=== PATIENT | female | born 1965 | race Caucasian/White ===

== ENCOUNTER 2021-05-15 12:20 | Inpatient (IN) ==
[2021-05-15] MEDS ORDERED: *HR* Dextrose 50 % in Water (Vial) 50 ML VIAL IVP PRN (16:30)
[2021-05-15] MEDS ORDERED: D5% in Water 1,000 ML IVC PRN (16:30)
[2021-05-15] MEDS ORDERED: Ringers Solution, Lactated 1,000 ML IVC SCH (16:30)
[2021-05-15] MEDS ORDERED: Dextrose Gel 15 GM/37.5 ML TUBE PO PRN ×2 (16:30)
[2021-05-15] MEDS ORDERED: Naloxone 0.4 MG/ML INJ IVP PRN (16:30)
[2021-05-15] MEDS ORDERED: *HR* LORazepam 2 MG/ML VIAL IVP PRN (16:37)
[2021-05-15] MEDS: Insulin LISPRO 300 UNITS/3 ML VIAL SUBQ SCH ×2 (17:00→23:57)
[2021-05-15 17:32] LABS: Basophils % 0.2 %; Eosinophils # 0.1 K/mcL (0.0-0.6); Eosinophils % 0.9 %; Hematocrit 42.4 % (35.3-44.9); Hemoglobin 12.6 g/dL (11.5-15.4); Immature Granulocytes % 0.3 % (0-4); Lymphocytes # 1.8 K/mcL (0.6-4.6); Lymphocytes % 15.2 %; Mean Corpuscular HGB Conc 29.7 g/dL (31.6-35.5); Mean Corpuscular Volume 104.2 fL (83.0-100.0); Mean Platelet Volume 11.2 fL (9.4-12.4); Monocytes # 1.6 K/mcL (0.0-1.3); Monocytes % 13.5 %; Neutrophils # 8.3 K/mcL (1.6-8.9); Nucleated Red Blood Cells 0.4 /100 WBC (0); Platelet Count 376 K/mcL (140-400); Red Blood Count 4.07 M/mcL (3.82-4.97); Red Cell Distribution Width 14.5 % (11.5-14.5); Segmented Neutrophils % 69.9 %; White Blood Count 11.8 K/mcL (4.3-11.1)
[2021-05-15 18:14] LABS: Calcium 8.2 mg/dL (8.6-10.3); Potassium 5.4 mEq/L (3.5-5.1)
[2021-05-15] MEDS: Piperacillin/Tazobactam 3.375 GM in 0.9 % Sodium Chloride Mini Bag 100 ML IVPB SCH (18:43)
[2021-05-15] MEDS: *HR* Heparin 5,000 UNIT/ML VIAL SQ SCH (18:44)
[2021-05-15] MEDS: Pantoprazole 40 MG VIAL IVP SCH (18:44)
[2021-05-15] MEDS: 0.9 % Sodium Chloride 1,000 ML IVC SCH (19:02)
[2021-05-15 20:05] LABS: ABG Base Excess -3 mEq/L (-2 to 3); ABG HCO3 27 mEq/L (21-27); ABG Oxygen Saturation 93 % (95-98); ABG PCO2 74 mmHg (35-45); ABG PH 7.17 pH Units (7.32-7.45); ABG PO2 88 mmHg (85-104); ABG TCO2 30 mEq/L (20-26)
[2021-05-15 21:59] LABS: ABG Base Excess 0 mEq/L (-2 to 3); ABG HCO3 29 mEq/L (21-27); ABG Oxygen Saturation 92 % (95-98); ABG PCO2 69 mmHg (35-45); ABG PH 7.23 pH Units (7.32-7.45); ABG PO2 77 mmHg (85-104); ABG TCO2 31 mEq/L (20-26)
[2021-05-16] MEDS: Piperacillin/Tazobactam 3.375 GM in 0.9 % Sodium Chloride Mini Bag 100 ML IVPB SCH ×3 (01:48→17:22)
[2021-05-16 01:51] LABS: Basophils % 0.3 %; Eosinophils # 0.1 K/mcL (0.0-0.6); Eosinophils % 1.1 %; Hematocrit 39.7 % (35.3-44.9); Hemoglobin 12.1 g/dL (11.5-15.4); Immature Granulocytes % 0.4 % (0-4); Lymphocytes # 1.5 K/mcL (0.6-4.6); Lymphocytes % 13.4 %; Mean Corpuscular HGB Conc 30.5 g/dL (31.6-35.5); Mean Corpuscular Hemoglobin 31.3 pg (28.0-33.3); Mean Corpuscular Volume 102.6 fL (83.0-100.0); Mean Platelet Volume 11.7 fL (9.4-12.4); Monocytes # 1.7 K/mcL (0.0-1.3); Monocytes % 15.3 %; Neutrophils # 7.9 K/mcL (1.6-8.9); Nucleated Red Blood Cells 0.4 /100 WBC (0); Platelet Count 353 K/mcL (140-400); Red Blood Count 3.87 M/mcL (3.82-4.97); Red Cell Distribution Width 14.6 % (11.5-14.5); Segmented Neutrophils % 69.5 %; White Blood Count 11.3 K/mcL (4.3-11.1)
[2021-05-16 02:10] LABS: Calcium 8.5 mg/dL (8.6-10.3); Magnesium 2.7 mg/dL (1.6-2.6); Phosphorous 4.5 mg/dL (2.7-4.5); Potassium 4.6 mEq/L (3.5-5.1)
[2021-05-16 02:48] LABS: Platelet Estimate Normal (Normal)
[2021-05-16] MEDS: *HR* Heparin 5,000 UNIT/ML VIAL SQ SCH ×2 (05:12→17:23)
[2021-05-16] MEDS: Pantoprazole 40 MG VIAL IVP SCH ×2 (05:12→17:23)
[2021-05-16] MEDS: Insulin LISPRO 300 UNITS/3 ML VIAL SUBQ SCH ×3 (07:19→17:06)
[2021-05-16] MEDS: Nicotine 21 MG PATCH.TD24 TD SCH (07:26)
[2021-05-16] MEDS ORDERED: Ondansetron 4 MG/2 ML VIAL IVP PRN (09:49)
[2021-05-16] MEDS: 0.9 % Sodium Chloride 1,000 ML IVC SCH (09:52)
[2021-05-17] MEDS: Insulin LISPRO 300 UNITS/3 ML VIAL SUBQ SCH ×4 (00:10→17:51)
[2021-05-17] MEDS: Piperacillin/Tazobactam 3.375 GM in 0.9 % Sodium Chloride Mini Bag 100 ML IVPB SCH ×3 (02:56→17:50)
[2021-05-17] MEDS: *HR* Heparin 5,000 UNIT/ML VIAL SQ SCH ×2 (05:14→17:51)
[2021-05-17] MEDS: Pantoprazole 40 MG VIAL IVP SCH ×2 (05:14→17:50)
[2021-05-17] MEDS: 0.9 % Sodium Chloride 1,000 ML IVC SCH (05:15)
[2021-05-17 07:43] LABS: Basophils # 0.1 K/mcL (0.0-0.2); Basophils % 0.4 %; Eosinophils % 0.1 %; Hematocrit 39.1 % (35.3-44.9); Hemoglobin 11.8 g/dL (11.5-15.4); Immature Granulocytes % 1.1 % (0-4); Lymphocytes # 1.8 K/mcL (0.6-4.6); Lymphocytes % 14.1 %; Mean Corpuscular HGB Conc 30.2 g/dL (31.6-35.5); Mean Corpuscular Hemoglobin 31.2 pg (28.0-33.3); Mean Corpuscular Volume 103.4 fL (83.0-100.0); Mean Platelet Volume 11.4 fL (9.4-12.4); Monocytes # 1.1 K/mcL (0.0-1.3); Monocytes % 8.2 %; Neutrophils # 9.8 K/mcL (1.6-8.9); Nucleated Red Blood Cells 0.7 /100 WBC (0); Platelet Count 375 K/mcL (140-400); Red Blood Count 3.78 M/mcL (3.82-4.97); Red Cell Distribution Width 14.9 % (11.5-14.5); Segmented Neutrophils % 76.1 %; White Blood Count 12.9 K/mcL (4.3-11.1)
[2021-05-17 08:18] LABS: BUN/Creatinine Ratio 37 (6-26); Blood Urea Nitrogen 30 mg/dL (6-20); Calcium 9.2 mg/dL (8.6-10.3); Carbon Dioxide 29 mEq/L (23-29); Chloride 113 mEq/L (98-107); Glucose 118 mg/dL (70-105); Magnesium 2.4 mg/dL (1.6-2.6); Osmolality,Calculated 317 (280-300); Phosphorous 1.8 mg/dL (2.7-4.5); Potassium 3.4 mEq/L (3.5-5.1); Sodium 150 mEq/L (136-145); eGFR For African Americans > 60 (> 60); eGFR For Non-African Americans > 60 (> 60)
[2021-05-17] MEDS: Nicotine 21 MG PATCH.TD24 TD SCH (08:50)
[2021-05-17 10:19] LABS: ABG Base Excess 4 mEq/L (-2 to 3); ABG HCO3 32 mEq/L (21-27); ABG Oxygen Saturation 87 % (95-98); ABG PCO2 64 mmHg (35-45); ABG PO2 60 mmHg (85-104); ABG TCO2 34 mEq/L (20-26)
[2021-05-17] MEDS ORDERED: Isovue-370 500 ML BOTTLE IVP ONE (11:15)
[2021-05-17] MEDS ORDERED: Potassium Chloride 40 MEQ, Lidocaine 1% 2 ML in 0.9 % Sodium Chloride 500 ML IVPB ONE (12:49)
[2021-05-18] MEDS: Piperacillin/Tazobactam 3.375 GM in 0.9 % Sodium Chloride Mini Bag 100 ML IVPB SCH (02:13)
[2021-05-18] MEDS: Insulin LISPRO 300 UNITS/3 ML VIAL SUBQ SCH ×5 (02:21→23:42)
[2021-05-18 04:02] LABS: Basophils # 0.1 K/mcL (0.0-0.2); Basophils % 0.5 %; Eosinophils % 0.1 %; Hematocrit 39.6 % (35.3-44.9); Immature Granulocytes % 2.3 % (0-4); Lymphocytes # 2.9 K/mcL (0.6-4.6); Lymphocytes % 17.3 %; Mean Corpuscular HGB Conc 30.3 g/dL (31.6-35.5); Mean Corpuscular Hemoglobin 30.8 pg (28.0-33.3); Mean Corpuscular Volume 101.5 fL (83.0-100.0); Mean Platelet Volume 11.6 fL (9.4-12.4); Monocytes # 1.5 K/mcL (0.0-1.3); Neutrophils # 11.6 K/mcL (1.6-8.9); Nucleated Red Blood Cells 1.5 /100 WBC (0); Platelet Count 395 K/mcL (140-400); Segmented Neutrophils % 70.8 %; White Blood Count 16.5 K/mcL (4.3-11.1)
[2021-05-18 04:06] LABS: VBG HCO3 30 mEq/L (21-27); VBG PCO2 47 mmHg (41-51); VBG PO2 77 mmHg (25-50)
[2021-05-18 04:27] LABS: BUN/Creatinine Ratio 37 (6-26); Blood Urea Nitrogen 31 mg/dL (6-20); Calcium 9.7 mg/dL (8.6-10.3); Carbon Dioxide 28 mEq/L (23-29); Chloride 113 mEq/L (98-107); Glucose 110 mg/dL (70-105); Osmolality,Calculated 319 (280-300); Potassium 3.7 mEq/L (3.5-5.1); Sodium 151 mEq/L (136-145); eGFR For African Americans > 60 (> 60); eGFR For Non-African Americans > 60 (> 60)
[2021-05-18] MEDS: Pantoprazole 40 MG VIAL IVP SCH ×2 (05:24→16:47)
[2021-05-18] MEDS: *HR* Heparin 5,000 UNIT/ML VIAL SQ SCH ×2 (05:24→16:47)
[2021-05-18] MEDS: Nicotine 21 MG PATCH.TD24 TD SCH (09:18)
[2021-05-18] MEDS: Cefepime HCl 2,000 MG in Water for inj. (sterile) 20 ML IVP SCH ×3 (09:18→23:41)
[2021-05-18] MEDS: Azithromycin 250 MG TABLET PO SCH (09:19)
[2021-05-18] MEDS ORDERED: Vancomycin 2,000 MG/520 ML IV.SOLN IVPB ONE (10:00)
[2021-05-18] MEDS ORDERED: Vancomycin 1,500 MG/265 ML IV.SOLN IVPB SCH (22:00)
[2021-05-19 04:57] LABS: ABG Base Excess 2 mEq/L (-2 to 3); ABG HCO3 27 mEq/L (21-27); ABG Oxygen Saturation 92 % (95-98); ABG PCO2 45 mmHg (35-45); ABG PH 7.39 pH Units (7.32-7.45); ABG PO2 64 mmHg (85-104); ABG TCO2 29 mEq/L (20-26); Blood Gas Modality AVAPS; Blood Gas VT 500 cc
[2021-05-19] MEDS: *HR* Heparin 5,000 UNIT/ML VIAL SQ SCH ×2 (05:38→17:45)
[2021-05-19] MEDS: Pantoprazole 40 MG VIAL IVP SCH ×2 (05:38→17:45)
[2021-05-19] MEDS: Insulin LISPRO 300 UNITS/3 ML VIAL SUBQ SCH ×4 (05:42→20:10)
[2021-05-19 06:39] LABS: Hematocrit 39.7 % (35.3-44.9); Hemoglobin 12.5 g/dL (11.5-15.4); Mean Corpuscular HGB Conc 31.5 g/dL (31.6-35.5); Mean Corpuscular Hemoglobin 31.6 pg (28.0-33.3); Mean Corpuscular Volume 100.3 fL (83.0-100.0); Mean Platelet Volume 11.5 fL (9.4-12.4); Platelet Count 365 K/mcL (140-400); Red Blood Count 3.96 M/mcL (3.82-4.97); Red Cell Distribution Width 14.9 % (11.5-14.5); White Blood Count 21.7 K/mcL (4.3-11.1)
[2021-05-19 07:00] LABS: BUN/Creatinine Ratio 41 (6-26); Blood Urea Nitrogen 34 mg/dL (6-20); Calcium 9.4 mg/dL (8.6-10.3); Carbon Dioxide 27 mEq/L (23-29); Chloride 112 mEq/L (98-107); Glucose 98 mg/dL (70-105); Osmolality,Calculated 316 (280-300); Potassium 3.2 mEq/L (3.5-5.1); Sodium 149 mEq/L (136-145); eGFR For African Americans > 60 (> 60); eGFR For Non-African Americans > 60 (> 60)
[2021-05-19] MEDS: Azithromycin 250 MG TABLET PO SCH (08:40)
[2021-05-19] MEDS: Cefepime HCl 2,000 MG in Water for inj. (sterile) 20 ML IVP SCH ×2 (08:40→16:21)
[2021-05-19] MEDS: Nicotine 21 MG PATCH.TD24 TD SCH (08:40)
[2021-05-19] MEDS ORDERED: Potassium Chloride Elixir 20 MEQ/15 ML UDC GTUBE ONE (08:57)
[2021-05-19] MEDS: Potassium Chloride Elixir 20 MEQ/15 ML UDC GTUBE SCH ×2 (09:46→14:21)
[2021-05-19] MEDS: Vancomycin Oral Soln 125 MG/2.5 ML UDC PO SCH (21:59)
[2021-05-20] MEDS: Cefepime HCl 2,000 MG in Water for inj. (sterile) 20 ML IVP SCH ×3 (01:03→15:36)
[2021-05-20 01:35] LABS: Red Blood Count 3.89 M/mcL (3.82-4.97); Red Cell Distribution Width 14.5 % (11.5-14.5)
[2021-05-20 01:36] LABS: Hematocrit 38.6 % (35.3-44.9); Hemoglobin 12.3 g/dL (11.5-15.4); Mean Corpuscular HGB Conc 31.9 g/dL (31.6-35.5); Mean Corpuscular Hemoglobin 31.6 pg (28.0-33.3); Mean Corpuscular Volume 99.2 fL (83.0-100.0); Mean Platelet Volume 11.6 fL (9.4-12.4); Platelet Count 335 K/mcL (140-400)
[2021-05-20 01:51] LABS: BUN/Creatinine Ratio 35 (6-26); Blood Urea Nitrogen 24 mg/dL (6-20); Calcium 9.1 mg/dL (8.6-10.3); Carbon Dioxide 26 mEq/L (23-29); Chloride 111 mEq/L (98-107); Glucose 104 mg/dL (70-105); Osmolality,Calculated 304 (280-300); Potassium 3.4 mEq/L (3.5-5.1); Sodium 145 mEq/L (136-145); eGFR For African Americans > 60 (> 60); eGFR For Non-African Americans > 60 (> 60)
[2021-05-20 04:23] LABS: ABG Base Excess 2 mEq/L (-2 to 3); ABG HCO3 29 mEq/L (21-27); ABG Oxygen Saturation 92 % (95-98); ABG PCO2 55 mmHg (35-45); ABG PH 7.32 pH Units (7.32-7.45); ABG PO2 71 mmHg (85-104); ABG TCO2 30 mEq/L (20-26)
[2021-05-20] MEDS: *HR* Heparin 5,000 UNIT/ML VIAL SQ SCH ×2 (06:24→17:40)
[2021-05-20] MEDS: Pantoprazole 40 MG VIAL IVP SCH ×2 (06:25→17:40)
[2021-05-20] MEDS: Insulin LISPRO 300 UNITS/3 ML VIAL SUBQ SCH ×4 (08:46→22:22)
[2021-05-20] MEDS: Nicotine 21 MG PATCH.TD24 TD SCH (08:54)
[2021-05-20] MEDS: Azithromycin 250 MG TABLET PO SCH (08:54)
[2021-05-20] MEDS: Vancomycin Oral Soln 125 MG/2.5 ML UDC PO SCH ×4 (08:59→22:17)
[2021-05-20] MEDS ORDERED: Isovue-370 500 ML BOTTLE IVP ONE (11:02)
[2021-05-20] MEDS ORDERED: Isovue-370 500 ML BOTTLE PO ONE (11:28)
[2021-05-21] MEDS: Cefepime HCl 2,000 MG in Water for inj. (sterile) 20 ML IVP SCH ×4 (02:35→22:46)
[2021-05-21] MEDS: *HR* Heparin 5,000 UNIT/ML VIAL SQ SCH ×3 (06:50→22:13)
[2021-05-21] MEDS: Pantoprazole 40 MG VIAL IVP SCH (06:51)
[2021-05-21 07:26] LABS: Hematocrit 37.7 % (35.3-44.9); Hemoglobin 12.1 g/dL (11.5-15.4); Mean Corpuscular HGB Conc 32.1 g/dL (31.6-35.5); Mean Corpuscular Hemoglobin 32.2 pg (28.0-33.3); Mean Corpuscular Volume 100.3 fL (83.0-100.0); Mean Platelet Volume 11.8 fL (9.4-12.4); Platelet Count 280 K/mcL (140-400); Red Blood Count 3.76 M/mcL (3.82-4.97); Red Cell Distribution Width 14.4 % (11.5-14.5)
[2021-05-21] MEDS: Insulin LISPRO 300 UNITS/3 ML VIAL SUBQ SCH ×4 (07:59→20:24)
[2021-05-21 08:00] LABS: BUN/Creatinine Ratio 28 (6-26); Blood Urea Nitrogen 19 mg/dL (6-20); Calcium 8.9 mg/dL (8.6-10.3); Carbon Dioxide 26 mEq/L (23-29); Chloride 109 mEq/L (98-107); Glucose 124 mg/dL (70-105); Osmolality,Calculated 300 (280-300); Potassium 3.7 mEq/L (3.5-5.1); Sodium 143 mEq/L (136-145); eGFR For African Americans > 60 (> 60); eGFR For Non-African Americans > 60 (> 60)
[2021-05-21] MEDS: Vancomycin Oral Soln 125 MG/2.5 ML UDC PO SCH ×4 (08:00→20:43)
[2021-05-21] MEDS: Nicotine 21 MG PATCH.TD24 TD SCH (08:00)
[2021-05-21] MEDS: Azithromycin 250 MG TABLET PO SCH (08:01)
[2021-05-21] MEDS: Acetaminophen 325 MG TABLET PO PRN ×2 (16:52→20:43)
[2021-05-22 05:32] LABS: Hematocrit 38.5 % (35.3-44.9); Mean Corpuscular HGB Conc 31.2 g/dL (31.6-35.5); Mean Corpuscular Volume 99.5 fL (83.0-100.0); Mean Platelet Volume 11.9 fL (9.4-12.4); Platelet Count 256 K/mcL (140-400); Red Blood Count 3.87 M/mcL (3.82-4.97); Red Cell Distribution Width 14.2 % (11.5-14.5)
[2021-05-22 05:50] LABS: BUN/Creatinine Ratio 26 (6-26); Blood Urea Nitrogen 15 mg/dL (6-20); Calcium 8.6 mg/dL (8.6-10.3); Carbon Dioxide 25 mEq/L (23-29); Chloride 110 mEq/L (98-107); Glucose 109 mg/dL (70-105); Osmolality,Calculated 295 (280-300); Potassium 3.5 mEq/L (3.5-5.1); Sodium 142 mEq/L (136-145); eGFR For African Americans > 60 (> 60); eGFR For Non-African Americans > 60 (> 60)
[2021-05-22] MEDS: Insulin LISPRO 300 UNITS/3 ML VIAL SUBQ SCH ×2 (07:16→11:48)
[2021-05-22] MEDS: Nicotine 21 MG PATCH.TD24 TD SCH (08:18)
[2021-05-22] MEDS: Azithromycin 250 MG TABLET PO SCH (08:18)
[2021-05-22] MEDS: Vancomycin Oral Soln 125 MG/2.5 ML UDC PO SCH (08:18)
[2021-05-22] MEDS: Cefepime HCl 2,000 MG in Water for inj. (sterile) 20 ML IVP SCH (08:19)
[2021-05-22 10:10] VITALS: BP 123/83; PULSE 61; TEMP 99.2; O2SAT 99
== END 2021-05-22 14:56 | disposition home or self-care (01) | DRG 247 ==
LOC: SUATTDRO 15:47 → INTOOBSV 15:47 → 2NNU 15:47 → SUATTDRO 05-18 15:13 → 3BNU 05-21 15:55
PROVIDERS: ADMIT Internal Medicine; ATTEND Internal Medicine